=== PATIENT | male | born 1945 | race Caucasian/White ===

== ENCOUNTER 2022-11-10 13:19 | Emergency (ER) | payer MEDICARE ==
[~2022-11-10] VITALS: Ht 180.3 cm; Wt 95.5 kg
[2022-11-10 13:36] VITALS: BP 155/75
[2022-11-10] MEDS: proparacaine 0.5% ophthalmic drops 15ml LEFTEYE ONE (15:06)
[2022-11-10] MEDS: erythromycin ophthalmic ointment 1gm tube LEFTEYE ONE (15:33)
[2022-11-10] MEDS ORDERED: HYDR-3972 PO (15:34)
[2022-11-10] MEDS ORDERED: ERYT1OIN6 LEFTEYE (15:34)
== END 2022-11-10 15:42 | disposition home or self-care (01) ==
LOC: ER 13:20
DX: T15.92XA Foreign body on external eye, part unspecified, left eye, initial encounter (principal); X58.XXXA Exposure to other specified factors, initial encounter; Y93.89 Activity, other specified; Y92.89 Other specified places as the place of occurrence of the external cause; Y99.8 Other external cause status
CPT/HCPCS: 65220; 99283; 99284